=== PATIENT | male | born 1980 | race Caucasian/White ===

== ENCOUNTER 2021-11-24 19:40 | Emergency (ER) | payer MEDICAID, SELFPAY ==
[2021-11-24 19:43] VITALS: BP 116/84; PULSE 104; RESP 18; TEMP 36.8; O2SAT 95; BMI 24.5
--- NOTE | 2021-11-24 20:14 | EDS_ITS ---
HPI HPI - Psych History of Present Illness Chief Complaint: Suicidal Onset/Context/Timing Onset: Days Context: Gradual Onset Conflict: Family Timing: Continuous Worsened by: Situational factors Associated Symptoms Associated Symptoms - Psych: Positive for Depressed, Decreased Interest and Suicidal Thoughts; Negative for Visual Hallucinations and Auditory Hallucinations Specific plan (suicidal thought): Stabbing self with a knife and hang self with a phone cord Narrative Narrative: Patient presents with suicidal ideations and attempt that occurred tonight. Patient states he has been feeling more suicidal over the last 3 to 4 days. Patient attempted to stab himself with a managing cognitive engineer knife tonight. Patient's states that she was able to get the managing cognitive engineer's knife away from him. Patient then attempted to strangle himself with a phone cord. states she was able to get the phone cord away from the patient. states that she was unable to talk to the patient and convince him to come to the emergency department. Patient has a history of traumatic brain injury. Patient has been noncompliant with his medications recently. Patient states that his left him recently and took the kids with her. Patient states this made him more depressed. Patient denies any visual or auditory hallucinations. [facility] Medical History (Updated 11/24/21 @ 23:[address] Justin Philippe DO) Traumatic brain injury Allergy/AdvReac Type Severity Reaction Status Date / Time No Known Allergies Allergy Verified 11/24/21 19:53 Surgical History (Updated 11/24/21 @ 20:[address] Justin Philippe DO) Hx of sinus surgery S/P IVC filter S/P ORIF (open reduction internal fixation) fracture Social History Smoking Status: Current every day smoker tobacco type: cigarettes ROS ROS ED Constitutional Constitutional ED: Denies chills or fever(s) Eyes Eyes: Denies blurry vision or change in vision ENT ENT ED: Denies rhinorrhea or sore throat Cardiovascular Cardiovascular: Denies chest pain or palpitations Respiratory/Chest Respiratory/Chest: Denies cough or dyspnea Gastrointestinal Gastrointestinal: Denies nausea or vomiting Genitourinary Genitourinary ED: Denies dysuria or hematuria Musculoskeletal Musculoskeletal: Denies back pain or neck pain Integumentary Denies abscess or rash Neurologic Neurologic: Denies headache(s) or weakness Psychiatric Psychiatric: Reports depression, suicidal ideation and suicidal thoughts Allergic/Immunologic Allergic/Immunologic ED: Denies mouth swelling or urticaria EXAM Physical Exam Const Vital Signs: 11/24/21 19:43 11/24/21 20:44 11/24/21 21:15 Temperature 98.3 F Temperature Source Temporal Pulse Rate 104 H Respiratory Rate 18 16 16 Blood Pressure 116/84 H Blood Pressure Mean 94 Pulse Ox 95 Oxygen Delivery Method Room Air Positive well nourished and well developed General Appearance ED: well developed HEENT normocephalic and atraumatic Neck supple and no JVD Resp normal respiratory effort and clear to auscultation bilaterally Cardio no murmurs Rate: regular rate Rhythm: regular rhythm GI non-tender and non-distended Auscultation: normoactive bowel sounds Palpation: soft Extremity normal to inspection General Extremety ED: Negative for edema or tenderness General Extremity: Negative for edema Neuro oriented x3, CN's II-XII intact bilaterally and no sensory deficits noted Sensorium / Orientation: alert Motor Exam: strength 5/5 throughout Psych mental status grossly normal Activity / Motor Behavior: avoids eye contact Speech: minimal and soft Mood & Affect: depressed and flat affect Thought Content: suicidality, No delusion(s) and No hallucination(s) Skin Rashes: no rashes MDM MDM MDM Narrative Medical decision making narrative: Suicide precautions were maintained. CBC and basic metabolic profile were obtained and were essentially within normal limits. Serum alcohol level was less than 3. COVID-19 rapid antigen was obtained was negative. Urine tox screen was ordered and is pending. Crisis will need to evaluate the patient. I feel the patient would benefit from transfer to a psychiatric facility. Care of the patient was turned over to the oncoming physician pending crisis evaluation. Lab Data Attestation: I reviewed the patient's lab results. Labs: Laboratory Results - last 24 hr 11/24/21 11/24/21 11/24/21 20:29 20:29 20:29 WBC 10.3 RBC 4.69 Hgb 15.4 Hct 45.5 MCV 97.0 H MCH 32.8 H MCHC 33.8 RDW Std Deviation 46.5 H RDW Coeff of Jovon 13.0 Plt Count 303 MPV 9.3 Immature Gran % (Auto) 0.500 Neut % (Auto) 65.1 Lymph % (Auto) 25.9 [place] % (Auto) 6.2 Eos % (Auto) 1.7 Baso % (Auto) 0.6 Absolute Neuts (auto) 6.7 Absolute Lymphs (auto) 2.66 Nucleated RBC % 0 Sodium 140 Potassium 3.5 Chloride 110 H Carbon Dioxide 24.0 Anion Gap 6 BUN 13 Creatinine 1.05 Estim Creat Clear Calc 81.35 Est GFR (MDRD) Af Amer 100 Est GFR (MDRD) Non-Af 83 BUN/Creatinine Ratio 12.4 Glucose 115 H Calcium 9.4 Ur Drug Screen Comment Ethyl Alcohol < 3.0 11/24/21 23:05 WBC RBC Hgb Hct MCV MCH MCHC RDW Std Deviation RDW Coeff of Jovon Plt Count MPV Immature Gran % (Auto) Neut % (Auto) Lymph % (Auto) [place] % (Auto) Eos % (Auto) Baso % (Auto) Absolute Neuts (auto) Absolute Lymphs (auto) Nucleated RBC % Sodium Potassium Chloride Carbon Dioxide Anion Gap BUN Creatinine Estim Creat Clear Calc Est GFR (MDRD) Af Amer Est GFR (MDRD) Non-Af BUN/Creatinine Ratio Glucose Calcium Ur Drug Screen Comment Ethyl Alcohol Discharge Plan Triage Chief Complaint: Suicidal ED Provider: Justin Philippe Dx/Rx/DC Orders Clinical Impression: Suicide attempt, Depression Primary Care Provider: Care Physician,No Primary Referrals: Care Physician,No Primary [Primary Care Provider] -
[2021-11-24 20:44] VITALS: RESP 16
[2021-11-24 20:48] LABS: Absolute Lymphocyte Count 2.66 X10^3/uL (0.83-4.51); Absolute Neutrophil Count 6.7 X10^3/uL (2.0-7.7); Basophil# 0.06 X10^3/uL; Basophil% 0.6 % (0-1); Eosinophil# 0.17 X10^3/uL; Eosinophils% 1.7 % (0-5); Hematocrit 45.5 % (40-54); Hemoglobin 15.4 g/dL (13.0-16.5); Lymphocyte # 2.66 X10^3/ul (0.83-4.51); Lymphocyte % 25.9 % (19-41); Mean Corp Hgb Conc 33.8 g/dL (32-36); Mean Corpuscular Hgb 32.8 pg (27.0-32.0); Mean Platelet Vol. 9.3 fl (6.2-12.0); Monocyte# 0.64 X10^3/uL; Monocyte% 6.2 % (0-10); NRBC Flagged by Analyzer 0 % (0-5); Neutrophil # 6.69 X10^3/uL (2.7-7.7); Neutrophil % 65.1 % (47-70); Platelet Count 303 K/mm3 (150-450); RBC Distribution Width SD 46.5 fl (35.1-43.9); Red Blood Count 4.69 M/mm3 (4.6-6.2); White Blood Count 10.3 K/mm3 (4.4-11.0)
[2021-11-24 21:01] LABS: Anion Gap 6 (5-15); BUN 13 mg/dL (7-18); BUN/Creat Ratio 12.4 RATIO (10-20); Calcium,Total 9.4 mg/dL (8.5-10.1); Chloride 110 mmol/L (98-107); Creatinine, Serum 1.05 mg/dL (0.70-1.30); EST Glomerular Filtration Rate 83 mL/min (>60); Est Glom Filt Rate - Afr Amer 100 mL/min (>60); Estimated Creatinine Clearance 81.35 ml/min; Glucose 115 mg/dL (74-106); Potassium 3.5 mmol/L (3.5-5.1); Sodium Level 140 mmol/L (136-145)
[2021-11-24 21:04] LABS: Alcohol, Blood (Medical)-Serum < 3.0 mg/dL
[2021-11-24 21:15] VITALS: RESP 16
[2021-11-24 23:50] LABS: Amphetamine Urine VISTA NEGATIVE (<1000 ng/mL); Barbiturate Urine VISTA NEGATIVE (< 200 ng/mL); Benzodiazepine Urine VISTA NEGATIVE (< 200 ng/mL); Cocaine Urine VISTA NEGATIVE (< 300 ng/mL); Ecstacy Urine VISTA NEGATIVE (< 500 ng/mL); Methadone Urine VISTA NEGATIVE (< 300 ng/mL); PCP Urine VISTA NEGATIVE (< 25 ng/mL); THC Urine VISTA NEGATIVE (< 50 ng/mL); Vista UDS pH Range 5
--- NOTE | 2021-11-24 23:58 | ED.RN ---
FAXED ALL THE PAPERWORK TO [facility] AND CALLED
[2021-11-25] VITALS (7 sets, daily range): BP systolic 110–139; BP diastolic 74–82; PULSE 62–78; RESP 15–16; TEMP 36.7; O2SAT 92–98
--- NOTE | 2021-11-25 03:55 | ED.RN ---
genny brennan called back they have declined patient due to insurance
--- NOTE | 2021-11-25 08:11 | ED.RN ---
[facility] CALLED AND PATIENT WAS DENIED AT [facility] BUT PENDING AT [facility]
--- NOTE | 2021-11-25 13:23 | CM.ED ---
WENDI Note WENDI received voice mail from Mere at [facility]. She said that she will be faxing the voluntary consent to the ED. WENDI called Mere at [facility]. WENDI advised that this junior underwriter had not received the Voluntary consent. Mere will refax it to this junior underwriter. WENDI received voluntary. WENDI met with patient. Patient said that he wants treatment but does not want to go anywhere. WENDI reviewed that the voluntary statement states that you will agree to all the rules and recommendation of the unit. Patient asked how long he will be at facility and patient was advised on average 3-5 and patient said they told me three days yesterday. SW indicated that this junior underwriter is providing an average and it is based on how compliant he is with medication and treatment. Patient said that he did not want to sign a TED. Patient said that he had been in a psych facility long time ago but it was for months. Patient declined to sign voluntary consent. WENDI called Mere at [facility] and advised that patient had refused to sign voluntary. Mere said to attempt to secure another placement but if no placement can be found then they would take patient on a pink slip. WENDI updated Dianne from Crisis. Dianne will explore options for patient outside of [facility]. WENDI was advised by Della, unit staff that patient was agreeing to sign the voluntary consent for treatment. Patient signed voluntary consent for treatment. WENDI called Mere at [facility] and advised that patient had signed voluntary consent for treatment. WENDI faxed it to [facility]. WENDI updated international manager Pepper and . Rayna DOHERTY
--- NOTE | 2021-11-25 14:12 | CM.ED ---
WENDI Note: Mere from [facility] called this internal communications writer. Accepting MD is Dr. Aleman. Patient is going to room 3302. RN to RN is [phone]. WENDI updated patient. Rayna Luli DOHERTY
--- NOTE | 2021-11-25 14:13 | CM.ED ---
Addendum entered by Rayna Rockwell 11/25/21 14:18: WENDI called [facility] and spoke to staff advising that no psych bed is needed. Rayna DOHERTY Original Note: WENDI Note WENDI provided patient with [facility] Healthcare Provider list and encouraged him to obtain PCP. Rayna DOHERTY
--- NOTE | 2021-11-25 14:50 | CM.ED ---
WENDI Note WENDI met with patient. Christ said that patient had questions regarding letting his know where he is going. WENDI advised that patient's ride will be here in 1 hour and then it will be 45 -60 minutes to [place]. Patient said that he has been unable to talk to his . WENDI asked patient to speak to [facility] and see if he can call his when he gets there if they will allow that. WENDI advised nicole could leave voice mail for his and patient said that he had texted his an update. Plan: [facility] Rayna DOHERTY
== END 2021-11-25 16:10 ==
PROVIDERS: Emergency Provider Emergency Medicine; Visit Provider Emergency Medicine
DX: T14.91XA Suicide attempt, initial encounter (principal); Z63.8 Other specified problems related to primary support group; F32.A Depression, unspecified; F17.210 Nicotine dependence, cigarettes, uncomplicated; Z87.820 Personal history of traumatic brain injury; Z91.14 Patient's other noncompliance with medication regimen
CPT/HCPCS: 36415; 80048; 80307; 82077; 85025; 87811; 99285